=== PATIENT | female | born 1985 | race Caucasian/White ===

== ENCOUNTER 2019-10-31 13:43 | Emergency (ER) | payer OTHER ==
[~2019-10-31] VITALS: Ht 170.2 cm; Wt 81.0 kg
[2019-10-31 13:55] VITALS: BP 110/65
[2019-10-31] MEDS ORDERED: TRAM50TA2 PO (15:16)
[2019-10-31] MEDS ORDERED: traMADol 50MG tablet PO ONE (15:40)
== END 2019-10-31 16:00 | disposition home or self-care (01) ==
LOC: ER 13:44
DX: S80.212A Abrasion, left knee, initial encounter (principal); Z79.899 Other long term (current) drug therapy; V29.9XXA Motorcycle rider (driver) (passenger) injured in unspecified traffic accident, initial encounter; Y93.89 Activity, other specified; Y92.488 Other paved roadways as the place of occurrence of the external cause; Y99.8 Other external cause status
CPT/HCPCS: 73564; 99284

== ENCOUNTER 2020-02-04 12:48 | Outpatient (CLI) | payer BC | END 2020-02-04 23:59 | disposition home or self-care (01) | LOC: LAB 12:48 | PROVIDERS: ATTEND Nurse Practitioner | DX: Z34.00 Encounter for supervision of normal first pregnancy, unspecified trimester (principal); Z3A.00 Weeks of gestation of pregnancy not specified | CPT/HCPCS: 36415; 84702 ==

== ENCOUNTER 2020-02-07 10:10 | Outpatient (CLI) | payer BC | END 2020-02-07 23:59 | disposition home or self-care (01) | LOC: LAB 10:10 | PROVIDERS: ATTEND Nurse Practitioner | DX: Z34.00 Encounter for supervision of normal first pregnancy, unspecified trimester (principal); Z3A.00 Weeks of gestation of pregnancy not specified | CPT/HCPCS: 36415; 84702 ==